=== PATIENT | female | born 1955 | race Caucasian/White ===

== ENCOUNTER → 2019-10-28 | Outpatient (CLI) | payer MEDICARE ==
[~2019-10-28] MED LIST: ACIPHEX 20 MG T20 MG PO; AMITRIPTYLINE H10 M1; ASPIRIN EC81 M1; CALCIUM 600 +1 EAC1; COZAAR 25 MG TA25 M1; CYMBALTA20 MG; GLUCOPHAGE XR500 MG; HYDROCODON-ACE1 EAC7 PO; KEFLEX500 MG PO; LASIX 40 MG TAB40 M1; METOPROLOL SUCC25 M1; PROAIR HFA8.5 GM INH; SYNTHROID125 MCG PO; TRAMADOL 50 MG50 MG; TRIAMTERENE-HC1 EAC3; ZOFRAN ODT4 MG PO
== END ==
LOC: M.RAD 10:57
PROVIDERS: ATTEND Nurse Practitioner Family
DX: Z12.31 Encounter for screening mammogram for malignant neoplasm of breast (principal)

== ENCOUNTER → 2020-11-14 | Outpatient (CLI) | payer MEDICARE | LOC: M.RAD 10:20 | PROVIDERS: ATTEND Family Medicine | DX: Z12.31 Encounter for screening mammogram for malignant neoplasm of breast (principal) ==

== ENCOUNTER → 2020-11-27 | Outpatient (CLI) | payer MEDICARE | LOC: M.RAD 13:13 | PROVIDERS: ATTEND Family Medicine | DX: M85.88 Other specified disorders of bone density and structure, other site (principal); Z78.0 Asymptomatic menopausal state ==